=== PATIENT | male | born 1950 | race Caucasian/White ===

== ENCOUNTER 2021-11-14 01:21 | Outpatient (CLI) | payer MEDICARE, SELFPAY ==
--- NOTE | 2021-11-14 10:28 | DI.US_ITS ---
APPROVED REPORT EXAM: Comprehensive 2D, Doppler, and color-flow Echocardiogram Patient Location: Out-Patient Oil Processing Technician: Rocío Stewart RDCS (AE) Indications: SOB Other Information Study Quality: Adequate Conclusion Normal left ventricular wall thickness and chamber size. Estimated ejection fraction is 60%. Wall m otion is normal Normal right ventricular size and systolic function Both atria are normal in size The aortic valve is trileaflet and sclerotic. There is no aortic stenosis or regurgitation Mild mitral annular calcification. Mild mitral regurgitation Normal tricuspid valve with trace regurgitation Wall motion Left Ventricle The left ventricle is normal size. The left ventricular systolic function is normal. The left ventric ular ejection fraction is within the normal range. There is normal left ventricular wall thickness. T here is normal LV segmental wall motion. There is no ventricular septal defect visualized. LVEF is 60 %. Right Ventricle The right ventricle is normal size. The right ventricular systolic function is normal. Atria The left atrium size is normal. The right atrium size is normal. The interatrial septum is intact wit h no evidence for an atrial septal defect. Aortic Valve The Aortic valve is sclerotic. Aortic valve is trileaflet. There is no aortic valvular stenosis. No a ortic regurgitation is present. Mitral Valve Mild mitral annular calcification. No evidence of mitral valve stenosis. Mild mitral regurgitation. Tricuspid Valve The tricuspid valve is normal in structure. There is no tricuspid valve stenosis. Trace tricuspid reg urgitation. Unable to assess PA pressure. Pulmonic Valve The pulmonary valve is normal in structure. There is no pulmonic valvular stenosis. Trace pulmonic re gurgitation. Great Vessels The aortic root is normal in size. The ascending aorta is normal in size. Aortic arch is normal in ca liber. IVC is normal in size and collapses >50% with inspiration. Pericardium There is no pericardial effusion. 2D Dimensions IVSD d PLAX 1.01 cm M: 0.6-1.2 LV Vol A2C d MOD 114.3 mL LVPW d PLAX 1.02 cm M: 0.6 - 1.2 LV Vol A4C d MOD 114.7 mL LVID d PLAX 4.32 cm M: 4.2 - 5.8 LA vol/ BSA A2C s A-L 18.4 mL/m2 LVDs 2.90 cm M: 2.5 - 4.0 LA vol/ BSA A4C s A-L 32.8 mL/m2 Ao Root d 3.05 cm M: 3.1 - 3.7 LA Vol/ BSA Biplane s A-L 27.0 mL/m2 RA Area A4C 20.63 cm2 LA Area A4C s MOD 21.58 cm2 RA Vol/ BSA A4C s A-L 33.4 mL/m2 LA Area A2C s MOD 14.71 cm2 Ao Asc Diam d 3.45 cm M: 2.6 - 3.4 LV EF A4C MOD 59.4 % LV EF Teichholz 60.5 % LV EF A2C MOD 60.6 % LVEF (Jeronimo's) 59.20 % M: 52 - 72 LV EF Biplane MOD 59.2 % LV Volume 86.44 mL M: 62 - 150 SV 68.12 mL LV Volume Index 43.43 mL/m2 M: 34 - 74 SV Index 34.22 mL/m2 LV Vol Biplane MOD 115.1 mL FS 32.05 % M-Mode TAPSE 2.53 cm (M/F) >1.7 LV Diastology MV E' medial 0.142 (>0.07 m/s) E/A Ratio 1.1 LV E/e MED 6.35 (<14) MV E Vmax 0.91 (0.4-1.3 m/s) MV E' lateral 0.075 (>0.1 m/s) MV A Vmax 0.80 (0.4-1.3 m/s) LV E/e LAT 12.15 (<14) MV E/A Ratio 1.08 MV E/E' medial 6.39 MV E/E' lateral 12.16 Aortic Valve LVOT Area 2.91 cm2 AoV Area Vmax 2.65 cm2 LVOT Vmax 1.32 m/s AoV Area/ BSA (Vmax) 1.33 cm2/m2 LVOT Mean Eliseo. 0.90 m/s NIKITA Mean Eliseo. 2.49 cm2 LVOT Peak Grad 7.0 mmHg NIKITA Mean Eliseo. Index 1.25 cm2/m2 LVOT Mean Grad 3.7 mmHg LVOT VTI 0.307 m LVOT Diam s 1.90 cm AoV Vmax 1.45 m/s Velocity Ratio 0.91 AoV Mean Eliseo. 1.05 m/s AoV Peak Grad 8.4 mmHg LVOT SV 89.37 mL AoV Mean Grad 4.9 mmHg AoV VTI 0.318 m AoV Area VTI 2.81 cm2 AoV Area/ BSA (VTI) 1.41 cm/m2 Mitral Valve MV DT 257 (160-240 msec) MV PHT 75 msec MV Area PHT 2.95 cm2 MV VTI 0.325 m MV Area VTI 2.75 (4.0-6.0 cm2) Pulmonary Valve PV Vmax 0.95 (0.5-1.5 m/s) RVOT Peak Gr. 1.58 mmHg PV Peak Grad 3.6 mmHg RVOT Mean Gr. 0.90 mmHg PV Mean Grad 2.1 mmHg RVOT VTI 0.136 m PV VTI 0.209 m RVOT Vmax 0.63 m/s
== END 2021-11-14 01:41 ==
PROVIDERS: PCP Family Medicine; Visit Provider Family Medicine
DX: R06.02 Shortness of breath (principal)
CPT/HCPCS: 93306